=== PATIENT | male | born 1955 | race Caucasian/White ===

== ENCOUNTER 2019-10-23 14:42 | Emergency (ER) | payer OTHER ==
[~2019-10-23] VITALS: Ht 175.3 cm; Wt 68.0 kg
[2019-10-23 14:46] VITALS: BP 139/113
[2019-10-23] MEDS ORDERED: CLONAZEPAM 1 MG1 M1 PO (15:14)
== END 2019-10-23 15:39 | disposition home or self-care (01) ==
LOC: ER 14:42
DX: F41.9 Anxiety disorder, unspecified (principal); Z76.0 Encounter for issue of repeat prescription; Z88.8 Allergy status to other drugs, medicaments and biological substances

== ENCOUNTER 2019-12-01 11:40 | Emergency (ER) | payer OTHER ==
[~2019-12-01] VITALS: Ht 175.3 cm; Wt 68.0 kg
[~2019-12-01 11:40] MED LIST: CLONAZEPAM 1 MG1 M1 PO
[2019-12-01 11:44] VITALS: BP 118/79
[2019-12-01] MEDS ORDERED: CLONAZEPAM 1 MG1 M1 PO (12:15)
== END 2019-12-01 12:41 | disposition home or self-care (01) ==
LOC: ER 11:40
DX: F41.0 Panic disorder [episodic paroxysmal anxiety] (principal); Z76.0 Encounter for issue of repeat prescription; Z79.899 Other long term (current) drug therapy; Z88.8 Allergy status to other drugs, medicaments and biological substances

== ENCOUNTER 2020-01-05 16:52 | Emergency (ER) | payer OTHER ==
[~2020-01-05] VITALS: Ht 175.3 cm; Wt 69.0 kg
[2020-01-05] MEDS ORDERED: ULTRAM 50MG TAB50 MG PO (17:59)
[2020-01-05 18:06] VITALS: BP 112/72
== END 2020-01-05 18:04 | disposition home or self-care (01) ==
LOC: ER 16:52
DX: M79.672 Pain in left foot (principal); Z79.899 Other long term (current) drug therapy; Z88.8 Allergy status to other drugs, medicaments and biological substances

== ENCOUNTER 2020-03-31 16:08 | Emergency (ER) | payer OTHER ==
[~2020-03-31] VITALS: Ht 175.3 cm; Wt 68.0 kg
[~2020-03-31 16:08] MED LIST changes: +ULTRAM 50MG TAB50 MG PO
[2020-03-31] MEDS ORDERED: ULTRAM 50MG TAB50 MG PO (16:26)
[2020-03-31 18:30] VITALS: BP 118/72
== END 2020-03-31 18:36 | disposition home or self-care (01) ==
LOC: ER 16:08
DX: M20.42 Other hammer toe(s) (acquired), left foot (principal); M21.612 Bunion of left foot; Z79.899 Other long term (current) drug therapy; Z88.8 Allergy status to other drugs, medicaments and biological substances

== ENCOUNTER 2020-04-21 17:37 | Emergency (ER) | payer OTHER ==
[~2020-04-21] VITALS: Ht 175.3 cm; Wt 70.3 kg
[2020-04-21] MEDS ORDERED: ULTRAM 50MG TAB50 MG PO (18:56)
[2020-04-21 19:08] VITALS: BP 115/75
== END 2020-04-21 19:08 | disposition home or self-care (01) ==
LOC: ER 17:37
DX: M20.42 Other hammer toe(s) (acquired), left foot (principal); M21.612 Bunion of left foot; G89.29 Other chronic pain; M79.672 Pain in left foot; Z79.899 Other long term (current) drug therapy; Z88.8 Allergy status to other drugs, medicaments and biological substances

== ENCOUNTER 2020-05-04 16:08 | Emergency (ER) | payer OTHER ==
[~2020-05-04] VITALS: Ht 175.3 cm; Wt 70.3 kg
[2020-05-04] MEDS ORDERED: RISPERDAL2 MG PO (16:14)
[2020-05-04] MEDS ORDERED: DEPAKOTE125 MG PO (16:14)
[2020-05-04] MEDS ORDERED: NEURONTIN300 MG PO (16:15)
[2020-05-04] MEDS ORDERED: SERTRALINE HCL100 MG PO (16:15)
[2020-05-04] MEDS ORDERED: NAPROSYN500 MG PO (16:40)
[2020-05-04] MEDS ORDERED: TYLENOL325 M1 PO (16:40)
[2020-05-04 16:52] VITALS: BP 136/74
== END 2020-05-04 16:52 | disposition home or self-care (01) ==
LOC: ER 16:08
DX: M20.12 Hallux valgus (acquired), left foot (principal); M21.612 Bunion of left foot; F41.9 Anxiety disorder, unspecified; G89.29 Other chronic pain; F17.210 Nicotine dependence, cigarettes, uncomplicated; Z79.899 Other long term (current) drug therapy; Z88.8 Allergy status to other drugs, medicaments and biological substances

== ENCOUNTER 2020-06-02 12:21 | Emergency (ER) | payer OTHER ==
[~2020-06-02] VITALS: Ht 175.3 cm; Wt 70.3 kg
[~2020-06-02 12:21] MED LIST changes: +DEPAKOTE125 MG PO; +NAPROSYN500 MG PO; +NEURONTIN300 MG PO; +RISPERDAL2 MG PO; +SERTRALINE HCL100 MG PO; +TYLENOL325 M1 PO
[2020-06-02] MEDS ORDERED: ULTRAM 50MG TAB50 MG PO ×2 (13:22→13:32)
[2020-06-02] MEDS ORDERED: MOBIC7.5 MG PO (13:25)
[2020-06-02 14:30] VITALS: BP 142/88
== END 2020-06-02 14:49 | disposition home or self-care (01) ==
LOC: ER 12:21
DX: M20.42 Other hammer toe(s) (acquired), left foot (principal); F17.210 Nicotine dependence, cigarettes, uncomplicated; Z79.899 Other long term (current) drug therapy; Z88.8 Allergy status to other drugs, medicaments and biological substances

== ENCOUNTER 2020-06-18 17:40 | Emergency (ER) | payer OTHER ==
[~2020-06-18] VITALS: Ht 175.3 cm; Wt 72.6 kg
[~2020-06-18 17:40] MED LIST changes: +MOBIC7.5 MG PO
[2020-06-18 17:48] VITALS: BP 117/73
[2020-06-18] MEDS ORDERED: TRAMADOL 50 MG50 MG PO (18:13)
== END 2020-06-18 18:14 | disposition home or self-care (01) ==
LOC: ER 17:40
DX: M79.672 Pain in left foot (principal); F17.210 Nicotine dependence, cigarettes, uncomplicated; Z79.899 Other long term (current) drug therapy; Z88.8 Allergy status to other drugs, medicaments and biological substances

== ENCOUNTER 2020-07-10 11:13 | Emergency (ER) | payer OTHER ==
[~2020-07-10] VITALS: Ht 175.3 cm; Wt 70.3 kg
[~2020-07-10 11:13] MED LIST changes: +TRAMADOL 50 MG50 MG PO
[2020-07-10 11:21] VITALS: BP 137/103
[2020-07-10] MEDS ORDERED: PREDNISONE50 MG PO (11:56)
== END 2020-07-10 12:08 | disposition home or self-care (01) ==
LOC: ER 11:13
DX: G89.29 Other chronic pain (principal); M20.42 Other hammer toe(s) (acquired), left foot; F17.210 Nicotine dependence, cigarettes, uncomplicated; Z79.899 Other long term (current) drug therapy; Z88.8 Allergy status to other drugs, medicaments and biological substances

== ENCOUNTER 2020-08-04 19:08 | Emergency (ER) | payer OTHER ==
[~2020-08-04] VITALS: Ht 175.3 cm; Wt 68.0 kg
[~2020-08-04 19:08] MED LIST changes: +PREDNISONE50 MG PO
[2020-08-04] MEDS ORDERED: INDOMETHACIN 5050 M1 PO (19:52)
[2020-08-04 20:06] VITALS: BP 138/81
== END 2020-08-04 20:12 | disposition home or self-care (01) ==
LOC: ER 19:08
DX: M21.612 Bunion of left foot (principal); M20.12 Hallux valgus (acquired), left foot; G89.29 Other chronic pain; F17.210 Nicotine dependence, cigarettes, uncomplicated; Z88.5 Allergy status to narcotic agent; Z79.899 Other long term (current) drug therapy

== ENCOUNTER 2020-09-16 17:47 | Emergency (ER) | payer OTHER ==
[~2020-09-16] VITALS: Ht 175.3 cm; Wt 72.6 kg
[~2020-09-16 17:47] MED LIST changes: +INDOMETHACIN 5050 M1 PO
[2020-09-16] MEDS ORDERED: CLONAZEPAM 1 MG1 M1 PO ×2 (18:03→19:21)
[2020-09-16 19:40] VITALS: BP 126/87
== END 2020-09-16 19:40 | disposition home or self-care (01) ==
LOC: ER 17:47
DX: F41.9 Anxiety disorder, unspecified (principal); F17.210 Nicotine dependence, cigarettes, uncomplicated; Z88.8 Allergy status to other drugs, medicaments and biological substances; Z79.899 Other long term (current) drug therapy